=== PATIENT | female | born 1990 | race Caucasian/White ===

== ENCOUNTER → 2018-10-04 | Outpatient (CLI) | payer SELFPAY ==
--- NOTE | 2018-10-05 08:21 | Diagnostic Imaging Report ---
#[id number] - [facility] : 10/04/2018 No prior exams were available for comparison. Color flow and real-time ultrasound were performed on the entire right breast with scanning in all four quadrants, retroareolar region and the right axilla. -No solid or cystic mass is seen. IMPRESSION: NEGATIVE There is no sonographic evidence of malignancy. Follow-up with ACR/ACS guidelines. Nelson Hernandez Jr., D.O. cw/:10/04/2018 15:27:23 Car Mechanic: Gabe Tinajero RDMS, [facility] letter sent: Normal Exam Ultrasound BI-RADS: 1 Negative
--- NOTE | 2018-10-05 08:21 | Diagnostic Imaging Report ---
#[id number] - [facility] ULTR[facility]OUND OF THE LEFT BREAST : 10/04/2018 No prior exams were available for comparison. Color flow and real-time ultrasound were performed on the entire left breast with scanning in all four quadrants, retroareolar region and the left axilla. -There is no cystic or solid mass identified. -No lesion identified in the area where the patient feels local pain. IMPRESSION: NEGATIVE There is no sonographic evidence of malignancy. Follow-up with ACR/ACS guidelines. Nelson Hernandez Jr., D.O. cw/:10/04/2018 15:29:16 Change Room Attendant: Gabe Tinajero RDGA, [facility] letter sent: Normal Exam Ultrasound BI-RADS: 1 Negative
== END ==
LOC: US 12:34
PROVIDERS: ATTEND Family Medicine
DX: N64.4 Mastodynia (principal)